=== PATIENT | male | born 1990 | race Caucasian/White ===

== ENCOUNTER 2023-03-26 15:54 | Emergency (ER) | payer OTHER ==
[~2023-03-26] VITALS: Ht 172.7 cm; Wt 95.3 kg
[2023-03-26 16:08] VITALS: BP 157/78; TEMP 98.1; O2SAT 100
[2023-03-26] MEDS ORDERED: KETOROLAC TROMETHAMINE INJ 30 MG/ML VIAL IM ONE (17:00)
[2023-03-26] MEDS ORDERED: KETOROLAC TROMETHAMINE 15 MG/ML VIAL ONE (17:12)
[2023-03-26] MEDS ORDERED: IBUP-1955 PO (17:37)
== END 2023-03-26 18:07 | disposition home or self-care (01) ==
LOC: ER 16:04
DX: S09.8XXA Other specified injuries of head, initial encounter (principal); Z79.899 Other long term (current) drug therapy; W22.8XXA Striking against or struck by other objects, initial encounter; Y93.89 Activity, other specified; Y92.89 Other specified places as the place of occurrence of the external cause; Y99.8 Other external cause status
CPT/HCPCS: 99283; 96372; J1885